=== PATIENT | male | born 2000 | race Caucasian/White ===

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

== ENCOUNTER 2021-09-02 09:02 | Emergency (ER) | payer OTHER ==
[2021-09-02 09:06] VITALS: BP 125/71; PULSE 71; TEMP 98; BMI 25.8
== END 2021-09-02 09:37 | disposition home or self-care (01) ==
LOC: JERFT 09:02
DX: H60.331 Swimmer's ear, right ear (principal)
CPT/HCPCS: 99281-25